=== PATIENT | female | born 2000 | race Two or more races ===

== ENCOUNTER 2023-09-21 11:19 | Inpatient (IN) | payer MEDICAID, OTHER ==
[2023-09-21] VITALS (9 sets, daily range): BP systolic 127–140; BP diastolic 66–87; PULSE 78–90; RESP 16–18; TEMP 98–98.3; O2SAT 95–99
[~2023-09-21] VITALS: Ht 147.3 cm; Wt 59.0 kg
[2023-09-21] MEDS: METHYLERGONOVINE MALEATE 0.2 MG/ML AMP IM ONE (12:15)
[2023-09-21] MEDS ORDERED: LACT. RINGERS/OXYTOCIN 20UNITS 500 ML IV ONE ×2 (12:15→12:45)
[2023-09-21] MEDS ORDERED: BUTORPHANOL TARTRATE 2 MG/1 ML VIAL IV PRN ×2 (12:15)
[2023-09-21] MEDS ORDERED: TERBUTALINE SULFATE 1 MG/ML 1ML VIAL SC PRN (12:15)
[2023-09-21] MEDS ORDERED: LIDOCAINE 2%HCL (LOCAL ANESTH.) INJ 20ML MDV IJ PRN (12:15)
[2023-09-21 12:17] LABS: Fern Testing Positive
[2023-09-21 12:43] LABS: Basophils # (auto) 0 10 ^3/uL (0-0.2); Basophils % (auto) 0.4 % (0.0-2.0); Eosinophils # (auto) 0 10 ^3/uL (0-0.8); Eosinophils % (auto) 0.1 % (0.0-7.0); Hematocrit 36.7 % (36.0-46.0); Hemoglobin 12.1 g/dL (12.2-16.2); Lymphocytes # (auto) 1.6 10 ^3/uL (0.4-5.4); Lymphocytes % (auto) 14.7 % (10.0-50.0); Mean Corpuscular Hemoglobin 29.8 pg (28.0-32.0); Mean Corpuscular Volume 90.2 fL (80.0-100.0); Monocytes # (auto) 0.5 10 ^3/uL (0-1.3); Monocytes % (auto) 4.8 % (0.0-12.0); Neutrophils # (auto) 8.9 10 ^3/uL (1.6-8.6); Red Blood Cells 4.07 10^6/uL (4.0-5.20); Red Cell Distribution Width 12.8 % (11.8-14.3); White Blood Cell 11.1 10^3/uL (4.4-10.8)
[2023-09-21 12:47] LABS: Urine Bacteria FEW /hpf (None Seen); Urine Blood 2+ /uL (Negative); Urine Clarity Clear (Clear); Urine Color Light-Yellow (Yellow); Urine Protein, UAD TRACE (Negative); Urine Specific Gravity 1.008 (1.001-1.035); Urine Urobilinogen Normal (Negative); Urine WBC 4 /hpf (0 - 5); Urine pH 6.5 (5.0-9.0)
[2023-09-21] MEDS: ceFAZolin 2 GM/D5W50ml 50 ML IV ONE (12:50)
[2023-09-21 12:55] LABS: Amphetamine Screen, Urine Neg (NEGATIVE); Barbiturate Scree,Urine Neg (NEGATIVE); Benzodiazephine Screen, Urine Neg (NEGATIVE); Cannabinoid Screen, Urine Neg (NEGATIVE); Cocaine Screen, Urine Neg (NEGATIVE); Opiate Scree,Urine Neg (NEGATIVE); Phencyclidine Screen, Urine Neg (NEGATIVE)
[2023-09-21 12:57] LABS: Albumin 3.9 g/dL (3.2-4.8); Alkaline Phosphatase 282 U/L (46-116); Anion Gap 7 (5-15); Aspartate Aminotransferase 22 U/L (13-40); BUN/Creatinine Ratio 13.2 (10.0-20.0); Blood Urea Nitrogen 7 mg/dL (9-23); Calcium 8.8 mg/dL (8.5-10.1); Carbon Dioxide 22 mmol/L (20-30); Chloride 108 mmol/L (98-107); Glucose 76 mg/dL (74-106); Potassium 3.8 mmol/L (3.5-5.1); Sodium 137 mmol/L (136-145)
[2023-09-21 12:58] LABS: Bilirubin, Total 0.3 mg/dL (0.2-1.0); INR 0.92 (0.9-1.15); Partial Thromboplastin Time 26.5 SEC (24.5-34.5); Prothrombin Time 9.7 sec (9.3-11.8); Total Protein 6.7 g/dL (5.7-8.2)
[2023-09-21 13:08] LABS: Alanine Aminotransferase < 9 U/L (7-40)
[2023-09-21] MEDS ORDERED: miSOPROStol 100 mcg TAB PR PRN (13:15)
[2023-09-21] MEDS ORDERED: miSOPROStol 100 mcg TAB SL PRN (13:15)
[2023-09-21] MEDS ORDERED: METHYLERGONOVINE MALEATE 0.2 MG/ML AMP IM PRN (13:15)
[2023-09-21] MEDS: TRANEXAMIC ACID 1,000 MG in SODIUM CHL 0.9% 100 ML IV ONE (13:15)
[2023-09-21] MEDS: LIDOCAINE 2%HCL (LOCAL ANESTH.) INJ 20ML MDV ONE (13:43)
[2023-09-21] MEDS: miSOPROStol 100 mcg TAB ONE (13:44)
[2023-09-21] MEDS: WITCH HAZEL-GLYCERIN PAD TOP ONE (13:44)
[2023-09-21] MEDS: LACT. RINGERS/OXYTOCIN 20UNITS 1,000 ML IV ONE (13:44)
[2023-09-21] MEDS: DERMOPLAST 60ML BOTTLE TOP ONE (13:44)
[2023-09-21] MEDS: PHISODERM TOP SOLN 240ML BTL TOP ONE (13:44)
[2023-09-21] MEDS: LACTATED RINGER'S 1,000 ML IV SCH (14:45)
[2023-09-21] MEDS ORDERED: HYDR-4902 PO (15:26)
[2023-09-21] MEDS ORDERED: DOCU-94 PO (15:26)
[2023-09-21] MEDS ORDERED: IBUP-1456 PO (15:26)
[2023-09-21] MEDS ORDERED: SODIUM CHLORIDE 0.9% 200 ML IUPC ONE (15:30)
[2023-09-21] MEDS: GUM (CHEWING) 1 GUM CHEW CHEW ONE (15:30)
[2023-09-21] MEDS ORDERED: SODIUM CHLORIDE 0.9% 1,000 ML IUPC SCH (15:30)
[2023-09-21] MEDS ORDERED: LACT. RINGERS/OXYTOCIN 20UNITS 1,000 ML IV ONE (15:30)
[2023-09-21] MEDS ORDERED: ONDANSETRON HCL 4 MG/2 ML VIAL IV PRN ×2 (15:30→17:00)
[2023-09-21] MEDS ORDERED: HYDROmorphone HCL 2 MG/ML VL/or syr IV PRN (17:00)
[2023-09-21] MEDS ORDERED: NALOXONE HCL 0.4 MG/ML VIAL IV PRN (17:00)
[2023-09-21] MEDS ORDERED: NALBUPHINE HCL 10 MG/1ml INJECTION IV ONE (17:00)
[2023-09-21] MEDS: ACETAMINOPHEN IV 100 ML IV ONE (19:15)
[2023-09-21] MEDS: ACETAMINOPHEN IV 1000 MG/100ML (10MG/ML) IV ONE (19:26)
[2023-09-21] MEDS: ceFAZolin 1GM/50ML 50 ML IV ONE (21:11)
[2023-09-21] MEDS: ceFAZolin 1GM/50ML 50 ML IV SCH (21:16)
[2023-09-21 21:58] LABS: Basophils # (auto) 0 10 ^3/uL (0-0.2); Basophils % (auto) 0.3 % (0.0-2.0); Eosinophils # (auto) 0 10 ^3/uL (0-0.8); Hematocrit 35.8 % (36.0-46.0); Hemoglobin 11.9 g/dL (12.2-16.2); Lymphocytes # (auto) 0.8 10 ^3/uL (0.4-5.4); Lymphocytes % (auto) 4.9 % (10.0-50.0); Mean Corpuscular Hemoglobin 29.6 pg (28.0-32.0); Mean Corpuscular Hgb Conc. 33.2 g/dL (32.0-36.0); Monocytes # (auto) 0.2 10 ^3/uL (0-1.3); Monocytes % (auto) 1.5 % (0.0-12.0); Neutrophils # (auto) 15.5 10 ^3/uL (1.6-8.6); Neutrophils % (auto) 93.3 % (37.0-80.0); Red Blood Cells 4.02 10^6/uL (4.0-5.20); Red Cell Distribution Width 12.4 % (11.8-14.3); White Blood Cell 16.6 10^3/uL (4.4-10.8)
[2023-09-22] VITALS (19 sets, daily range): BP systolic 115–140; BP diastolic 59–88; PULSE 68–90; RESP 12–20; TEMP 97.7–98.9; O2SAT 96–100
[2023-09-22] MEDS ORDERED: CEFAZOLIN 1 GM/50 ML IV SCH (06:00)
[2023-09-22 06:23] LABS: Basophils # (auto) 0 10 ^3/uL (0-0.2); Basophils % (auto) 0.2 % (0.0-2.0); Eosinophils # (auto) 0 10 ^3/uL (0-0.8); Hematocrit 30.8 % (36.0-46.0); Hemoglobin 10.2 g/dL (12.2-16.2); Lymphocytes # (auto) 1.7 10 ^3/uL (0.4-5.4); Lymphocytes % (auto) 12.2 % (10.0-50.0); Mean Corpuscular Hemoglobin 29.6 pg (28.0-32.0); Mean Corpuscular Hgb Conc. 33.1 g/dL (32.0-36.0); Mean Corpuscular Volume 89.4 fL (80.0-100.0); Monocytes # (auto) 0.9 10 ^3/uL (0-1.3); Monocytes % (auto) 6.6 % (0.0-12.0); Neutrophils # (auto) 11.2 10 ^3/uL (1.6-8.6); Red Blood Cells 3.44 10^6/uL (4.0-5.20); Red Cell Distribution Width 12.8 % (11.8-14.3); White Blood Cell 13.9 10^3/uL (4.4-10.8)
[2023-09-22] MEDS: DOCUSATE SOD 100 MG CAP PO SCH (10:00)
[2023-09-22] MEDS: DOCUSATE CALCIUM 240 MG CAP PO SCH (10:00)
[2023-09-22] MEDS: HYDROcodone-ACET 5/325MG TAB ONE (10:56)
[2023-09-22] MEDS: HYDROcodone-ACET 5/325MG TAB PO PRN ×2 (11:01→17:20)
[2023-09-22] MEDS ORDERED: SIMETHICONE 80 MG CHEWABLE TABLET PO SCH (12:00)
[2023-09-22] MEDS: ceFAZolin 1GM/50ML 50 ML IV ONE (12:38)
[2023-09-22] MEDS: IBUPROFEN 800 MG TAB PO PRN (15:22)
[2023-09-22] MEDS: diphenhdrAMINE HCL 50 MG/1 ML VL IV PRN (17:21)
[2023-09-22] MEDS ORDERED: SIMETHICONE 80 MG CHEWABLE TABLET PO PRN (18:00)
[2023-09-22] MEDS: ceFAZolin 1GM/50ML 50 ML IV SCH (22:05)
[2023-09-22] MEDS: WITCH HAZEL-GLYCERIN PAD TOP PRN (22:14)
[2023-09-22] MEDS: PHISODERM TOP SOLN 240ML BTL TOP PRN (22:14)
[2023-09-22] MEDS: DERMOPLAST 60ML BOTTLE TOP PRN (22:14)
[2023-09-23 03:05] VITALS: BP 134/86; PULSE 80; RESP 14; TEMP 98.7; O2SAT 98
[2023-09-23 07:06] LABS: RPR Non Reactive (Non Reactive)
[2023-09-23 07:12] VITALS: BP 127/86; PULSE 83; RESP 16; TEMP 97.8; O2SAT 95
[2023-09-23 10:45] VITALS: BP 115/78; PULSE 90; RESP 16; TEMP 99; O2SAT 97
[2023-09-24 18:06] LABS: Treponema pallidum Ab (FTA-Ab) Non Reactive (Non Reactive)
== END 2023-09-23 10:45 | disposition home or self-care (01) | DRG 540 ==
LOC: LDRP 11:19 → UNDOADMOB 11:19 → INTOOBSV 11:50 → OBSVTOIN 11:50 → LDRP 11:50 → OBSVTOIN 12:14 → LDRP 12:14
PROVIDERS: ADMIT Obstetrics & Gynecology; ATTEND Obstetrics & Gynecology
PROC: 10D00Z1 Extraction of Products of Conception, Low, Open Approach (ICD-10-PCS; principal; 2023-09-21 15:36)
DX: O76 Abnormality in fetal heart rate and rhythm complicating labor and delivery (principal); O77.0 Labor and delivery complicated by meconium in amniotic fluid; Z3A.39 39 weeks gestation of pregnancy; Z37.0 Single live birth
CPT/HCPCS: 36415; 59025; 80053; 80307; 81001; 84112; 85025; 85610; 85730; 86592; 86850; 86900; 86901; 94760; 94762; 96360; 96361; 96365; G0378; J0131; J2590